=== PATIENT | female | born 1980 | race Caucasian/White ===

== ENCOUNTER 2025-06-03 09:04 | Emergency (ER) | payer SELFPAY ==
[2025-06-03 09:05] VITALS: BP 134/103
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
[2025-06-03 11:27] VITALS: BP 131/89
== END 2025-06-03 11:34 | disposition home or self-care (01) ==
LOC: EMR 09:04
PROVIDERS: EMERGENCY PHYSICIAN Emergency Medicine; FAMILY PHYSICIAN Family Medicine
DX: S09.90XA Unspecified injury of head, initial encounter (principal); V89.2XXA Person injured in unspecified motor-vehicle accident, traffic, initial encounter; Y92.410 Unspecified street and highway as the place of occurrence of the external cause
CPT/HCPCS: 99284; 70450